=== PATIENT | male | born 1990 | race Caucasian/White ===

== ENCOUNTER 2022-12-14 17:35 | Emergency (ER) | payer SELFPAY ==
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
[2022-12-14] MEDS ORDERED: ONDANSETRON 4 MG/2 ML VIAL ONE (18:27)
[2022-12-14] MEDS ORDERED: MORPHINE 4 MG/ML SYR ONE ×2 (18:27→19:41)
[2022-12-14] MEDS ORDERED: PANTOPRAZOLE 40 MG INJ ONE ×2 (18:28→21:01)
[2022-12-14] MEDS ORDERED: NA CHLORIDE 0.9% 2,000 ML ONE (18:28)
[2022-12-14 18:40] LABS: Absolute Lymphocytes (CBC) 1.6 K/uL (0.7-4.9); Hematocrit 52.7 % (39.6-49.0); Lymphocytes % 10.5 % (15.3-44.8); MCV 89.2 fL (80-100); MPV 6.8 fL (7.6-11.3); Platelets 211 thou/uL (152-406); RBC Red Blood Cell Count 5.91 M/uL (4.33-5.43)
[2022-12-14 18:54] LABS: Protime INR 1.01
[2022-12-14 19:03] LABS: Albumin 3.6 g/dL (3.4-5.0); Bilirubin Direct 0.2 mg/dL (0-0.2); Bilirubin Indirect, Calculated 1.3 mg/dL (0.2-0.8); Bilirubin Total 1.5 mg/dL (0.2-1.0); Protein, Total 8.5 g/dL (6.4-8.2); Troponin High Sensitivity 5.6 pg/mL (<58.9)
[2022-12-14 19:04] LABS: Magnesium 1.7 mg/dL (1.6-2.4); Potassium 3.4 mEq/L (3.5-5.1)
--- NOTE | 2022-12-14 20:36 | RAD REPORT ---
EXAM DESCRIPTION: CT - Angio Aorta For Dissection - 12/14/2022 7:45 pm CLINICAL HISTORY: chest pain;Abd pain COMPARISON: No comparisons TECHNIQUE: Dynamically enhanced 3 mm thick images of the chest, abdomen, and upper pelvis were obtai simon during administration of approximately 145mL Isovue 370 IV contrast. Sagittal and coronal reconst ructions as well as maximal intensity projection reconstruction were generated and reviewed per an [facility] angiography protocol. All CT scans are performed using dose optimization technique as appropriate and may include automated exposure control or mA/KV adjustment according to patient size. FINDINGS: Patchy hypoenhancement in the region of the tail of the pancreas, with focal swelling in t his region and pronounced surrounding fat stranding. Nonlocalized fluid in this region extends along the left paracolic gutter with accumulation of mild apicitis in the deep pelvis. The pelvic component demonstrates density somewhat above that of simple fluid. Trace right paracolic gutter fluid as well . Aorta is normal in diameter with no dissection or other acute aortic findings. Reconstruction images show no significant findings. Pulmonary arteries are normal as well. No mass or infiltrate in the lung parenchyma. No pleural thickening, pleural effusion or pneumothorax . No abnormal mediastinal or hilar mass or lymphadenopathy seen. No chest wall mass or abnormal axillar y lymphadenopathy. Celiac, SMA and renal arteries show no suspicious findings. Diffuse hepatic parenchymal hypoattenuati on suggesting steatosis. Other solid abdominal viscera and bowel show no significant findings. No mas s or abnormal lymphadenopathy. IMPRESSION: Focal patchy hypoenhancement in the region of the tail of the pancreas, concerning for a cute pancreatitis. No localized fluid in the adjacent soft tissues with fluid tracking along the left paracolic gutter and accumulating in the pelvis. Fluid component in the pelvis shows density above t hat of simple fluid, therefore raising concern for hemorrhagic pancreatitis. No acute abnormalities of the aorta. Diffuse hepatic steatosis. The findings were communicated to David Page on 12/14/2022 at 20:31 hours.
--- NOTE | 2022-12-14 20:45 | RAD REPORT ---
EXAM DESCRIPTION: Yari Single View12/14/2022 6:46 pm CLINICAL HISTORY: ABDOMINAL DISTENTION COMPARISON: No comparisons TECHNIQUE: Portable AP view of the chest. FINDINGS: Decreased inspiratory effort somewhat limits evaluation. The lungs are clear. No pneumoth orax or effusion. The cardiomediastinal contours are unremarkable. IMPRESSION: No acute cardiopulmonary process.
[2022-12-14] MEDS ORDERED: NA CHLORIDE 0.9% 250 ML ONE (21:01)
[2022-12-14] MEDS ORDERED: KCL 20 MEQ/100 mL IVPB 100 ML IV ONE (21:01)
[2022-12-14] MEDS ORDERED: PIPERACIL/TAZO 3.375 GM VIAL IV ONE (21:01)
[2022-12-14] MEDS ORDERED: NA CHLORIDE 0.9% 1,000 ML ONE (21:02)
[2022-12-14] MEDS ORDERED: NA CHLORIDE 0.9% 100 ML ONE (21:03)
--- NOTE | 2022-12-14 21:05 | EDPHYS ---
Physician Documentation [facility] Name: Jose Moore Jr Age: 32 yrs Sex: Male : 1990 Arrival Date: 12/14/2022 Time: 17:35 Bed 18 Private MD: ED Physician Eris Hinojosa HPI: 12/14 18:10 This 32 yrs old Male presents to ER via Wheelchair with complaints of Abdominal cp Distention, Abdominal Pain. 18:10 The patient presents with abdominal pain in the epigastric area, in the upper abdomen. cp Onset: The symptoms/episode began/occurred 3 day(s) ago, and became worse yesterday. Associated signs and symptoms: Pertinent positives: chest pain, vomiting blood, Pertinent negatives: blood in stools, constipation, fever, shortness of breath. The symptoms are described as constant. Severity of pain: in the emergency department the pain is unchanged despite home interventions. Historical: - Allergies: 17:52 No Known Allergies; ap3 - Home Meds: 17:52 None [Active]; ap3 - PMHx: 17:52 None; ap3 - Immunization history:: Client reports having NOT received the Covid vaccine. - Social history:: Smoking status: Reported history of juuling and/or vaping. ROS: 18:15 Constitutional: Positive for poor PO intake, Negative for body aches, chills, fever, cp 18:15 Eyes: Negative for injury, pain, redness, and discharge, cp 18:15 ENT: Negative for drainage from ear(s), ear pain, difficulty swallowing, difficulty handling secretions, 18:15 Cardiovascular: Positive for chest pain, 18:15 Respiratory: Negative for cough, wheezing, 18:15 Abdomen/GI: Positive for abdominal pain, nausea, anorexia, hematemesis, Negative for diarrhea, constipation, black/tarry stool, rectal bleeding, 18:15 : Negative for urinary symptoms, flank pain, 18:15 Neuro: Negative for altered mental status, headache, syncope, 18:15 All other systems are negative, Exam: 18:20 Constitutional: The patient appears in no acute distress, alert, awake, cp non-diaphoretic, non-toxic, well developed, well nourished, 18:20 Head/Face: Normocephalic, atraumatic. cp 18:20 Eyes: Periorbital structures: appear normal, Conjunctiva: normal, no exudate, no injection, Sclera: no appreciated abnormality, Lids and lashes: appear normal, bilaterally, 18:20 ENT: External ear(s): are unremarkable, Nose: is normal, Mouth: Lips: moist, Oral mucosa: pink and intact, moist, Posterior pharynx: is normal, airway is patent, no erythema, no exudate, 18:20 Chest/axilla: Inspection: normal, 18:20 Cardiovascular: Rate: tachycardic, Rhythm: regular, 18:20 Respiratory: the patient does not display signs of respiratory distress, Respirations: normal, no use of accessory muscles, no retractions, labored breathing, is not present, Breath sounds: are clear throughout, no decreased breath sounds, no stridor, no wheezing, 18:20 Abdomen/GI: Inspection: distension, that is mild, Bowel sounds: active, all quadrants, Palpation: soft, in all quadrants, severe abdominal tenderness, in the epigastric area, rebound tenderness, is not appreciated, voluntary guarding, is elicited in the epigastric area, 18:20 Neuro: Orientation: to person, place \T\ time. Mentation: is normal, Motor: moves all fours, strength is normal, Sensation: is normal, 19:30 ECG was reviewed by the Attending Physician. cp Vital Signs: 17:53 BP 150 / 118; Pulse 133; Resp 18; Temp 98; Pulse Ox 98% ; Weight 74.84 kg; Height 5 ft. ap3 7 in. ; Pain 8/10; 18:30 BP 152 / 109; Pulse 116; Resp 18; Pulse Ox 99% ; nj1 19:21 Pain 9/10; nj1 20:01 BP 168 / 112; Pulse 105; Resp 22; Pulse Ox 99% ; Pain 6/10; nj1 21:16 BP 166 / 117; Pulse 102; Resp 22; Pulse Ox 96% ; nj1 22:00 BP 142 / 105; Pulse 102; Resp 16; Pulse Ox 94% on R/A; jb4 10 00:00 BP 126 / 88; Pulse 106; Resp 19; Pulse Ox 97% on R/A; jb4 01:00 BP 127 / 85; Pulse 103; Resp 18; Pulse Ox 94% on R/A; jb4 02:00 BP 143 / 104; Pulse 111; Resp 19; Pulse Ox 99% on R/A; jb4 03:00 BP 142 / 101; Pulse 110; Resp 25; Pulse Ox 94% ; jb4 04:00 BP 141 / 97; Pulse 104; Resp 19; Pulse Ox 94% ; jj7 05:00 BP 134 / 94; Pulse 103; Resp 19; Pulse Ox 96% ; jj7 06:00 BP 143 / 91; Pulse 110; Resp 17; Pulse Ox 99% ; j7 12/14 17:53 Body Mass Index 25.84 (74.84 kg, 170.18 cm) ap3 12/14 17:53 Pain Scale: Adult ap3 19:21 Pain Scale: Adult nj1 20:01 Pain Scale: Adult nj1 MDM: 12/14 17:56 Patient medically screened. 21:10 Data reviewed: vital signs, nurses notes, lab test result(s), EKG, radiologic studies, cp plain films. 21:10 I considered the following discharge prescriptions or medication management in the emergency department Medications were administered in the Emergency Department. See MAR. Counseling: I had a detailed discussion with the patient and/or guardian regarding the historical points, exam findings, and any diagnostic results supporting the discharge/admit diagnosis, lab results, radiology results, the need to transfer to another facility, [facility] does not immediately have the required specialist. 12/14 18:06 Order name: Basic Metabolic Panel; Complete Time: 19:18 cp 12/14 19:18 Interpretation: Normal except: NA 132; K 3.4; GLUC 116; GFR 82. 12/14 18:06 Order name: CBC with Diff; Complete Time: 18:53 12/14 18:53 Interpretation: Normal except: WBC 14.90; RBC 5.91; HGB 18.4; HCT 52.7; MPV 6.8; TK% cp 83.3; LYM% 10.5; NEUT A 12.4. 12/14 18:06 Order name: LFT's; Complete Time: 19:18 cp 12/14 19:18 Interpretation: Normal except: AST 47; BILIT 1.5; IBILI, CALC 1.3; TP 8.5; GLOB 4.9; cp A/G 0.7. 12/14 18:06 Order name: Magnesium; Complete Time: 19:18 cp 12/14 18:06 Order name: PT-INR; Complete Time: 19:18 cp 12/14 18:06 Order name: Troponin HS; Complete Time: 19:18 cp 12/14 18:06 Order name: Ptt, Activated; Complete Time: 19:18 cp 12/14 18:06 Order name: Lipase; Complete Time: 19:18 cp 12/14 19:19 Interpretation: Abnormal: LIP 248. cp 12/14 18:06 Order name: COVID-19 SARS RT PCR; Complete Time: 19:48 cp 12/14 19:48 Interpretation: Reviewed. cp 12/14 18:06 Order name: Influenza Screen (a \T\ B); Complete Time: 19:48 cp 12/14 19:48 Interpretation: Reviewed. cp 12/14 20:29 Order name: Lactate w/ 2H reflex if indic.; Complete Time: 03:35 cp 12/14 20:29 Order name: Blood Culture Adult (2) cp 12/14 21:01 Order name: Type And Screen; Complete Time: 03:35 cp 12/15 00:04 Order name: Hemoglobin; Complete Time: 04:20 cp 12/15 00:04 Order name: Hematocrit; Complete Time: 04:20 cp 12/15 04:40 Order name: ABO/RH no charge; Complete Time: 05:47 EDMS 12/14 18:06 Order name: XRAY Chest (1 view); Complete Time: 20:55 cp 12/14 19:21 Order name: CT Aorta for Dissection; Complete Time: 20:37 cp 12/14 18:06 Order name: EKG; Complete Time: 18:07 cp 12/14 18:06 Order name: Cardiac monitoring; Complete Time: 18:27 cp 12/14 18:06 Order name: EKG - Nurse/Tech; Complete Time: 19:49 cp 12/14 18:06 Order name: IV Saline Lock; Complete Time: 18:27 cp 12/14 18:06 Order name: Labs collected and sent; Complete Time: 18:27 cp 12/14 18:06 Order name: O2 Per Protocol; Complete Time: 18:27 cp 12/14 18:06 Order name: O2 Sat Monitoring; Complete Time: 18:27 cp 12/14 18:06 Order name: IV; Complete Time: 18:28 cp 12/14 20:31 Order name: NPO; Complete Time: 21:31 cp EC:30 Rate is 101 beats/min. Rhythm is regular. KS interval is normal. QRS interval is cp normal. QT interval is normal. T waves are Inverted in lead aVR. Interpreted by me. Reviewed by me. Administered Medications: 18:20 Drug: NS 0.9% IV 1000 ml IV at 1 bolus Per protocol; 1000 mL bolus Route: IV; Rate: 1 nj1 bolus; Site: right antecubital; 19:21 Follow up: Response: No adverse reaction; IV Status: Completed infusion; IV Intake: nj1 1000ml 18:20 Drug: Ondansetron IVP 4 mg IVP once; over 2 minutes Route: IVP; Site: right antecubital;[facility] 19:21 Follow up: Response: No adverse reaction [facility] 18:22 Drug: Pantoprazole IVP 40 mg IVP once Route: IVP; Site: right antecubital; [facility] 19:22 Follow up: Response: No adverse reaction [facility] 18:24 Drug: morphine IVP or IV 4 mg IVP once over 4 mins Route: IVP; Infused Over: 4 mins; [facility] Site: right antecubital; 19:21 Follow up: Pain 9/10 Adult; Response: No adverse reaction; Pain is unchanged, physician pa1 notified 19:18 Drug: NS 0.9% IV 1000 ml IV at 1 bolus Per protocol; 1000 mL bolus Route: IV; Rate: 1 nj1 bolus; Site: right antecubital; 19:34 Drug: morphine IVP or IV 4 mg IVP once over 4 mins Route: IVP; Infused Over: 4 mins; [facility] Site: right antecubital; 21:13 Drug: NS 0.9% IV 1000 ml IV at 1 bolus Per protocol; 1000 mL bolus Route: IV; Rate: 1 nj1 bolus; Site: right antecubital; 21:15 Drug: Pantoprazole IV 8 mg/hr IV at 25 ml/hr continuous; (Standard dilution is 80 mg in [facility] 250 mL NS) Route: IV; Rate: 25 ml/hr; Site: right antecubital; 12/15 07:12 Follow up: IV Status: Infusion continued upon transfer jj7 12/14 21:30 Drug: HYDROmorphone IVP 1 mg IVP once Route: IVP; Site: right forearm; jb4 21:51 Drug: Piperacillin-Tazobactam IVPB 3.375 grams IVPB once over 60 mins; (mix in NS 100 jb4 mL) Route: IVPB; Infused Over: 60 mins; Site: right forearm; 23:46 Drug: Potassium Chloride IV 10 mEq IV at calculated rate once; administer over 1-2 jb4 hours Route: IV; Rate: calculated rate; Site: right forearm; 12/15 03:16 Drug: HYDROmorphone IVP 1 mg IVP once Route: IVP; Site: right forearm; jb4 03:30 Follow up: Response: Marked relief of symptoms jj7 06:52 Drug: HYDROmorphone IVP 1 mg IVP once Route: IVP; Site: right forearm; jj7 06:55 Follow up: Response: No adverse reaction jj7 Disposition: 12/14 21:55 I was immediately available on-site in the Emergency Department for consultation in the ms3 care of the patient. Disposition Summary: 12/14/22 21:05 Transfer Ordered Notes: Transfer Location: [facility] cp Reason: Higher level of care cp Condition: Stable cp Problem: new cp Symptoms: have improved cp Accepting Physician: Doctor(12/15/22 07:17) [email or web address] Diagnosis - GI Bleed/ Gastrointestinal hemorrhage, unspecified cp - Acute Pancreatitis cp Forms: - Medication Reconciliation Form cp - SBAR form cp Signatures: Dispatcher [employer] EDMS David Bond PA PA cp Shaan Correia RN RN jb4 Juliet Henderson RN RN ap3 Eris Hinojosa DO DO ms3 Sanjana Dhillon RN RN jj7 Bernadette Dee RN RN nj1 Ethan Cuellar MD MD ec2 Corrections: (The following items were deleted from the chart) 12/15 07:17 10 21:05 Doctor cp jj7
--- NOTE | 2022-12-14 21:05 | ER ---
Nurse's Notes [facility] Name: Jose Moore Jr Age: 32 yrs Sex: Male : 1990 Arrival Date: 12/14/2022 Time: 17:35 Bed 18 Private MD: Diagnosis: GI Bleed/ Gastrointestinal hemorrhage, unspecified;Acute Pancreatitis Presentation: 12/14 17:51 Chief complaint: Patient states: he has been experiencing nausea and vomiting with left ap3 upper quadrant abdominal pain, which he rates an 8/10 on the pain scale at this time. patient states this started a few days ago, but that yesterday he started vomiting blood. Coronavirus screen: At this time, the client does not indicate any symptoms associated with coronavirus-19. Ebola Screen: No symptoms or risks identified at this time. Initial Sepsis Screen: Does the patient meet any 2 criteria? HR > 90 bpm. Does the patient have a suspected source of infection? Yes: Acute abdominal pain. Risk Assessment: Do you want to hurt yourself or someone else? Patient reports no desire to harm self or others. Onset of symptoms is unknown. 17:51 Method Of Arrival: Wheelchair ap3 17:51 Acuity: RANJANA 3 ap3 Triage Assessment: 17:53 General: Appears uncomfortable, Behavior is calm, cooperative, appropriate for age. ap3 Pain: Complains of pain in left upper quadrant Pain currently is 8 out of 10 on a pain scale. Quality of pain is described as stabbing, Pain began gradually. Neuro: Level of Consciousness is awake, alert, obeys commands, Oriented to person, place, time, situation, Appropriate for age. Cardiovascular: Patient's skin is warm and dry. Respiratory: Airway is patent Respiratory effort is even, unlabored, Respiratory pattern is regular, symmetrical. GI: Reports upper abdominal pain, nausea, vomiting. Historical: - Allergies: 17:52 No Known Allergies; ap3 - Home Meds: 17:52 None [Active]; ap3 - PMHx: 17:52 None; ap3 - Immunization history:: Client reports having NOT received the Covid vaccine. - Social history:: Smoking status: Reported history of juuling and/or vaping. Screenin:54 [facility] ED Fall Risk Assessment (Adult) History of falling in the last 3 months, ap3 including since admission No falls in past 3 months (0 pts). Abuse screen: Denies threats or abuse. Nutritional screening: No deficits noted. Tuberculosis screening: No symptoms or risk factors identified. Assessment: 18:15 Reassessment: See triage assessment. nj1 19:20 Reassessment: Patient appears in no apparent distress at this time. Patient and/or nj1 family updated on plan of care and expected duration. Pain level reassessed. Patient is alert, oriented x 3, equal unlabored respirations, skin warm/dry/pink. 20:01 Reassessment: Patient appears in no apparent distress at this time. Patient and/or nj1 family updated on plan of care and expected duration. Pain level reassessed. Patient is alert, oriented x 3, equal unlabored respirations, skin warm/dry/pink. 21:00 Reassessment: Patient appears in no apparent distress at this time. Patient and/or jb4 family updated on plan of care and expected duration. Pain level reassessed. Patient is alert, oriented x 3, equal unlabored respirations, skin warm/dry/pink. 22:00 Reassessment: Patient appears in no apparent distress at this time. Patient and/or jb4 family updated on plan of care and expected duration. Pain level reassessed. Patient is alert, oriented x 3, equal unlabored respirations, skin warm/dry/pink. 23:00 Reassessment: Patient appears in no apparent distress at this time. Patient and/or jb4 family updated on plan of care and expected duration. Pain level reassessed. Patient is alert, oriented x 3, equal unlabored respirations, skin warm/dry/pink. 12/15 00:00 Reassessment: Patient appears in no apparent distress at this time. Patient and/or jb4 family updated on plan of care and expected duration. Pain level reassessed. Patient is alert, oriented x 3, equal unlabored respirations, skin warm/dry/pink. 01:00 Reassessment: Patient appears in no apparent distress at this time. Patient and/or jb4 family updated on plan of care and expected duration. Pain level reassessed. Patient is alert, oriented x 3, equal unlabored respirations, skin warm/dry/pink. 02:00 Reassessment: Patient appears in no apparent distress at this time. Patient and/or jb4 family updated on plan of care and expected duration. Pain level reassessed. Patient is alert, oriented x 3, equal unlabored respirations, skin warm/dry/pink. 03:16 Reassessment: Patient appears in no apparent distress at this time. Patient and/or [facility] family updated on plan of care and expected duration. Pain level reassessed. Patient is alert, oriented x 3, equal unlabored respirations, skin warm/dry/pink. HGB 15.6 HCT 43.9. 04:30 Reassessment: Patient and/or family updated on plan of care and expected duration. Pain 7 level reassessed. 06:00 Reassessment: No changes from previously documented assessment. Patient is alert, j7 oriented x 3, equal unlabored respirations, skin warm/dry/pink. 06:49 Reassessment: EMS AT BEDSIDE FOR PT TRANSFER. Vital Signs: 12/14 17:53 BP 150 / 118; Pulse 133; Resp 18; Temp 98; Pulse Ox 98% ; Weight 74.84 kg; Height 5 ft. ap3 7 in. ; Pain 8/10; 18:30 BP 152 / 109; Pulse 116; Resp 18; Pulse Ox 99% ; nj1 19:21 Pain 9/10; nj1 20:01 BP 168 / 112; Pulse 105; Resp 22; Pulse Ox 99% ; Pain 6/10; nj1 21:16 BP 166 / 117; Pulse 102; Resp 22; Pulse Ox 96% ; nj1 22:00 BP 142 / 105; Pulse 102; Resp 16; Pulse Ox 94% on R/A; 4 12/15 00:00 BP 126 / 88; Pulse 106; Resp 19; Pulse Ox 97% on R/A; 4 01:00 BP 127 / 85; Pulse 103; Resp 18; Pulse Ox 94% on R/A; 4 02:00 BP 143 / 104; Pulse 111; Resp 19; Pulse Ox 99% on R/A; 4 03:00 BP 142 / 101; Pulse 110; Resp 25; Pulse Ox 94% ; 4 04:00 BP 141 / 97; Pulse 104; Resp 19; Pulse Ox 94% ; j7 05:00 BP 134 / 94; Pulse 103; Resp 19; Pulse Ox 96% ; j7 06:00 BP 143 / 91; Pulse 110; Resp 17; Pulse Ox 99% ; j7 12/14 17:53 Body Mass Index 25.84 (74.84 kg, 170.18 cm) ap3 12/14 17:53 Pain Scale: Adult ap3 19:21 Pain Scale: Adult nj1 20:01 Pain Scale: Adult nj1 ED Course: 12/14 17:38 Patient arrived in ED. kj1 17:41 David Bond PA is PHCP. cp 17:41 Eris Hinojosa DO is Attending Physician. cp 17:52 Triage completed. ap3 17:54 Arm band placed on left wrist. ap3 18:15 Patient has correct armband on for positive identification. Bed in low position. Call nj1 light in reach. Side rails up X 1. Provided Education on: call light, fall precautions. 18:19 No provider procedures requiring assistance completed. Inserted saline lock: 22 gauge nj1 in right antecubital area, using aseptic technique. Blood collected. 18:23 Bernadette Dee, RN is Primary Nurse. nj1 18:48 XRAY Chest (1 view) In Process Unspecified. EDMS 19:47 CT Aorta for Dissection In Process Unspecified. EDMS 21:00 Initiated transfer with Yessi at [facility]. rv1 21:07 [facility] declined due to capacity. rv1 21:08 Initiated transfer with Corrie at [facility]. rv1 21:46 [facility] declined due to physician discretion. rv1 21:48 Initiated transfer with Khushi at [facility]. rv1 22:18 [facility] declined due to capacity. [place] physician rv1 deferred to [facility] but due to no beds at [facility], declined. 22:20 Initiated transfer with Becca at [facility]. rv1 22:45 [facility] declined due to capacity. rv1 22:46 Initiated transfer with Marta at [facility]. rv1 23:36 [facility] declined due to lack of capabilities. rv1 23:37 Re-initiated with Yessi at [facility] for a bed at [facility]. rv1 12/15 00:04 [facility] declined due to capacity. rv1 00:31 Initiated transfer with Wilbert at [facility]. rv1 00:31 [facility] declined due to capacity. rv1 04:15 Initiated transfer with Lata at [facility]. rv1 06:12 Pt accepted to [facility] by Dr. Chino Garvey to ICU 210. rv1 06:23 Called Ivan with EMS for transfer truck, given 10-15 min ETA. rv1 07:00 Patient transferred, IV remains in place. jj7 Administered Medications: 12/14 18:20 Drug: NS 0.9% IV 1000 ml IV at 1 bolus Per protocol; 1000 mL bolus Route: IV; Rate: 1 nj1 bolus; Site: right antecubital; 19:21 Follow up: Response: No adverse reaction; IV Status: Completed infusion; IV Intake: nj1 1000ml 18:20 Drug: Ondansetron IVP 4 mg IVP once; over 2 minutes Route: IVP; Site: right antecubital;nj 19:21 Follow up: Response: No adverse reaction nj1 18:22 Drug: Pantoprazole IVP 40 mg IVP once Route: IVP; Site: right antecubital; [facility] 19:22 Follow up: Response: No adverse reaction nj1 18:24 Drug: morphine IVP or IV 4 mg IVP once over 4 mins Route: IVP; Infused Over: 4 mins; nj Site: right antecubital; 19:21 Follow up: Pain 9/10 Adult; Response: No adverse reaction; Pain is unchanged, physician ben notified 19:18 Drug: NS 0.9% IV 1000 ml IV at 1 bolus Per protocol; 1000 mL bolus Route: IV; Rate: 1 nj1 bolus; Site: right antecubital; 19:34 Drug: morphine IVP or IV 4 mg IVP once over 4 mins Route: IVP; Infused Over: 4 mins; nj Site: right antecubital; 21:13 Drug: NS 0.9% IV 1000 ml IV at 1 bolus Per protocol; 1000 mL bolus Route: IV; Rate: 1 nj1 bolus; Site: right antecubital; 21:15 Drug: Pantoprazole IV 8 mg/hr IV at 25 ml/hr continuous; (Standard dilution is 80 mg in nj1 250 mL NS) Route: IV; Rate: 25 ml/hr; Site: right antecubital; 12/15 07:12 Follow up: IV Status: Infusion continued upon transfer jj7 12/14 21:30 Drug: HYDROmorphone IVP 1 mg IVP once Route: IVP; Site: right forearm; jb4 21:51 Drug: Piperacillin-Tazobactam IVPB 3.375 grams IVPB once over 60 mins; (mix in NS 100 jb4 mL) Route: IVPB; Infused Over: 60 mins; Site: right forearm; 23:46 Drug: Potassium Chloride IV 10 mEq IV at calculated rate once; administer over 1-2 jb4 hours Route: IV; Rate: calculated rate; Site: right forearm; 12/15 03:16 Drug: HYDROmorphone IVP 1 mg IVP once Route: IVP; Site: right forearm; jb4 03:30 Follow up: Response: Marked relief of symptoms jj7 06:52 Drug: HYDROmorphone IVP 1 mg IVP once Route: IVP; Site: right forearm; jj7 06:55 Follow up: Response: No adverse reaction jj7 Medication: 07:00 VIS not applicable for this client. jj7 Intake: 12/14 19:21 IV: 1000ml; Total: 1000ml. nj1 Outcome: 21:05 ER care complete, transfer ordered by MD. tejdaa 12/15 07:00 Transferred by ground EMS [facility] to [facility], Transfer form jj7 completed. X-rays sent w/ patient. Condition: improved 07:17 Patient left the ED. jj7 Signatures: Dispatcher [employer] EDMS David Bond PA PA cp Bryson, James RN RN jb4 Juliet Henderson RN RN ap3 Fauzia Bhardwaj1 Sanjana Dhillon RN RN jj7 Zakia Sorensen rv1 Bernadette Dee RN RN nj1 Corrections: (The following items were deleted from the chart) 12/14 21:18 21:16 BP 166 / 117; Pulse 102bpm; Resp 22bpm; Pulse Ox 96%; Pain 11/07, Adult; nj1 nj1 23:44 23:38 [facility] declined due to lack of capabilities rv1 rv1
[2022-12-14] MEDS ORDERED: HYDROMORPHONE HCL 1 MG/ML INJ ONE (21:30)
[2022-12-15] MEDS ORDERED: HYDROMORPHONE HCL 1 MG/ML INJ ONE ×2 (03:25→07:06)
[2022-12-15 03:58] LABS: Hematocrit 43.9 % (39.6-49.0)
[2022-12-15 07:40] VITALS: TEMP 98
[2022-12-15 08:02] VITALS: BP 143/91; O2SAT 99
--- NOTE | 2022-12-15 12:25 | EKG ---
Test Date: 2022-12-14 Test Time: 19:24:12 Film Printer: JORGITO MEASUREMENT RESULTS: Intervals: Rate: 101 MN: 136 QRSD: 80 QT: 336 QTc: 435 [place]: P: 63 MN: 136 QRS: 52 T: 39 INTERPRETIVE STATEMENTS: Sinus tachycardia Otherwise normal ECG No previous ECG available for comparison Electronically Signed On 12-15-22 12:23:36 CDT by Trevor Allen
== END 2022-12-15 07:17 | disposition short-term general hospital (02) ==
LOC: ER 17:35
DX: K85.90 Acute pancreatitis without necrosis or infection, unspecified (principal); Z20.822 Contact with and (suspected) exposure to COVID-19
CPT/HCPCS: 36415; 71045; 71275; 74175; 80048; 80076; 83605; 83690; 83735; 84484; 85014; 85018; 85025; 85610; 85730; 86850; 86900; 86901; 87040; 87635; 87804; 93005; C9113; J1170; J2405; J2543; J3480; J7030; J7050; Q9967